=== PATIENT | female | born 1980 | race American Indian/Alaskan Native ===

== ENCOUNTER 2019-01-27 18:04 | Emergency (ER) | payer SELFPAY ==
[2019-01-27 18:09] VITALS: BP 134/86
[2019-01-27] MEDS ORDERED: DECADRON IM ONE (18:09)
[2019-01-27] MEDS ORDERED: TRIMOX PO ONE (18:09)
--- NOTE | 2019-01-27 18:10 | Emergency Department Report ---
HPI - General Time Seen by Provider: 01/27/19 18:08 - HPI HPI: R LOWER DENTAL PAIN. ABC INTACT. CONTROLLING SECRETIONS. NO TRISMUS. VSS. AMBULATORY ON ARRIVAL TO ER. PT HAS NOT SEEN DMD. NOTHING HAS BEEN TAKEN TO MAKE HER PAIN BETTER. EATING COLD OR HOT FOODS MAKE THE PAIN WORSE. ED Past Medical Hx - Past Medical History Previous Medical History?: No - Surgical History Past Surgical History?: No - Family History Family history: no significant - Social History Smoking Status: Never Smoker Substance Use Type: None - Medications Home Medications: Home Medications Medication Instructions Recorded Confirmed Last Taken Type Amoxicillin [Trimox CAP] 500 mg PO BID #20 capsule 01/27/19 Unknown Rx ED Review of Systems ROS: Stated complaint: MOUTH IN PAIN Other details as noted in HPI Comment: All other systems reviewed and negative Physical Exam - Physical Exam Physical Exam: WDWN patient in NAD VS per RN flow sheet Alert and oriented to person, place and time. DENTAL PAIN OVER 32. NO ABSCESS. NO LUDWIGS. NO ABSCESS. UVULA MIDLINE S1-S2. No S3 or S4. No systolic or diastolic murmur. No JVD. No pitting edema. Lungs clear to auscultation bilaterally anteriorly and posteriorly. Abdomen soft nontender bowel sounds X4 Moves all extremities well. Mood and affect appropriate. ED Medical Decision Making - Medical Decision Making Vital Signs 01/27/19 18:05 Temperature 98.1 F Pulse Rate 87 Respiratory 16 Rate Blood Pressure 134/86 O2 Sat by Pulse 100 Oximetry ABC INTACT TAKING PO WITHOUT DIFFICULTY NO ABSCESS NO TRISMUS NO FEVER AMBULATORY AND NONTOXIC WILL DC HOME WITH DC PLAN OF CARE AND DMD FOLLOW UP. - Differential Diagnosis DENTAL PAIN RO ABSCESS Critical care attestation.: If time is entered above; I have spent that time in minutes in the direct care of this critically ill patient, excluding procedure time. ED Disposition Clinical Impression: Pain, dental Disposition: DC-01 TO HOME OR SELFCARE Is pt being admited?: No Does the pt Need Aspirin: No Condition: Stable Instructions: Dental Caries (ED) Prescriptions: Amoxicillin [Trimox CAP] 500 mg PO BID #20 capsule Referrals: [facility] [Outside] - 3-5 Days Time of Disposition: 18:09
== END 2019-01-27 19:03 | disposition home or self-care (01) ==
LOC: ED 18:04
DX: K08.89 Other specified disorders of teeth and supporting structures (principal)
CPT/HCPCS: 96372; 99282; J1100